=== PATIENT | male | born 1990 | race Caucasian/White ===

== ENCOUNTER 2020-05-06 15:16 | Emergency (ER) | payer MEDICAID, OTHER ==
[~2020-05-06] VITALS: Ht 175.3 cm; Wt 72.7 kg
[2020-05-06 16:14] VITALS: BP 158/98
[2020-05-06] MEDS ORDERED: ibuprofen tablet 400 MG TABLET PO ONE (17:25)
== END 2020-05-06 18:07 | disposition home or self-care (01) ==
LOC: ER 15:18
DX: S92.251A Displaced fracture of navicular [scaphoid] of right foot, initial encounter for closed fracture (principal); V89.2XXA Person injured in unspecified motor-vehicle accident, traffic, initial encounter; Y93.89 Activity, other specified; Y92.89 Other specified places as the place of occurrence of the external cause; Y99.8 Other external cause status
CPT/HCPCS: 29125; 73110; 99284

== ENCOUNTER 2022-01-18 17:05 | Emergency (ER) | payer MEDICAID, OTHER ==
[~2022-01-18] VITALS: Ht 172.7 cm; Wt 68.2 kg
[2022-01-18 17:14] VITALS: BP 156/75
== END 2022-01-18 17:54 | disposition home or self-care (01) ==
LOC: ER 17:05
DX: S00.81XA Abrasion of other part of head, initial encounter (principal); W01.0XXA Fall on same level from slipping, tripping and stumbling without subsequent striking against object, initial encounter; Y93.89 Activity, other specified; Y92.89 Other specified places as the place of occurrence of the external cause; Y99.8 Other external cause status
CPT/HCPCS: 99283

== ENCOUNTER 2024-09-15 13:04 | Emergency (ER) | payer MEDICAID ==
[~2024-09-15] VITALS: Ht 175.3 cm; Wt 84.1 kg
[2024-09-15 13:08] VITALS: BP 118/85; PULSE 79; RESP 18; O2SAT 99
[2024-09-15] MEDS ORDERED: CLIN300C54 PO (14:26)
[2024-09-15 15:11] VITALS: TEMP 98.2
== END 2024-09-15 15:13 | disposition home or self-care (01) ==
LOC: ER 13:05
DX: S00.86XA Insect bite (nonvenomous) of other part of head, initial encounter (principal); W57.XXXA Bitten or stung by nonvenomous insect and other nonvenomous arthropods, initial encounter; Y93.89 Activity, other specified; Y92.89 Other specified places as the place of occurrence of the external cause; Y99.8 Other external cause status
CPT/HCPCS: 99283